=== PATIENT | male | born 1960 | race Caucasian/White ===

== ENCOUNTER 2019-04-06 11:39 | Emergency (ER) | payer SELFPAY, OTHER ==
[2019-04-06] MEDS: KETOROLAC 30 MG INJ IM (12:25)
== END 2019-04-06 13:24 | disposition home or self-care (01) ==
LOC: FTE 11:39
DX: M79.672 Pain in left foot (principal); I10 Essential (primary) hypertension
CPT/HCPCS: 73630; 73630-LT; 96372; 99284-25